=== PATIENT | female | born 1995 | race Asian ===

== ENCOUNTER 2019-05-25 12:57 | Emergency (ER) | payer SELFPAY ==
[~2019-05-25] VITALS: Ht 154.9 cm; Wt 43.1 kg
--- NOTE | 2019-05-25 13:15 | NUR ---
PATIENT WHEELCHAIR ASSISTED TO BED 9.
[2019-05-25 13:21] VITALS: BP 106/71
--- NOTE | 2019-05-25 13:24 | NUR ---
INFLUENZA SWAB COLLECTED
[2019-05-25] MEDS ORDERED: IBUPROFEN 800 MG TAB PO ONE (13:30)
--- NOTE | 2019-05-25 13:42 | NUR ---
23 Y/O F WITH C/C OF FEVER X2 DAYS. PT PRESENTS WITH FEVER IN TRAIGE. PT NKA. NO HX. NO RX. NOT UP TO DATE WITH FLU SHOT; FAMILY SICK AT HOME. DENIES N/V/D. SIDE RAIL X1. FAMILY AT BEDSIDE.
[2019-05-25] MEDS ORDERED: NACL 0.9% 1,000 ML IV ONE (13:45)
[2019-05-25 13:57] LABS: APPEARANCE,URINE CLEAR (CLEAR); BILIRUBIN,URINE NEGATIVE (NEGATIVE); BLOOD, URINE 3+ (NEGATIVE); COLOR,URINE YELLOW (YELLOW); LEUKOCYTE ESTERASE ,URINE NEGATIVE (NEGATIVE); NITRITE, URINE NEGATIVE (NEGATIVE); UGLUCOSE NEGATIVE (NEGATIVE)
--- NOTE | 2019-05-25 14:16 | NUR ---
NS BOLUS STARTED
[2019-05-25 14:25] LABS: RBC,URINE 20-50 /HPF (0-5); WBC,URINE 0-5 /HPF (0-5)
[2019-05-25] MEDS ORDERED: OSELTAMIVIR PHOSPHATE 75 MG CAP PO ONE (15:00)
[2019-05-25 15:15] VITALS: BP 96/56
--- NOTE | 2019-05-25 15:15 | NUR ---
Patient discharged with v/s stable. Written and verbal after care instructions given and explained. Patient alert, oriented and verbalized understanding of instructions. Ambulatory with steady gait. All questions addressed prior to discharge. ID band removed. Patient advised to follow up with PMD. Rx of ibuprofen, tamiflu given. Patient educated on indication of medication including possible reaction and side effects. Opportunity to ask questions provided and answered.
== END 2019-05-25 15:15 | disposition home or self-care (01) ==
LOC: MED 12:57
DX: J10.1 Influenza due to other identified influenza virus with other respiratory manifestations (principal)
CPT/HCPCS: 71045; 81001; 81025; 87804; 99284; Q0092